=== PATIENT | male | born 2000 | race Two or more races ===

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

== ENCOUNTER 2019-08-25 15:22 | Emergency (ER) | payer MEDICAID, OTHER ==
[~2019-08-25] VITALS: Ht 182.9 cm; Wt 61.8 kg
[2019-08-25 15:34] VITALS: BP 104/66
--- NOTE | 2019-08-25 16:01 | NUR ---
PT TO ROOM 11 PER PEDIS. PT C/O LEFT EAR PAIN X5 DAYS, HURTS WORSE WHEN SWALLOWING. PT A/O X4, STRONG STEADY GAIT. REPORT TO JOEL WHITE
== END 2019-08-25 16:26 | disposition home or self-care (01) ==
LOC: ED 16:00
DX: H66.92 Otitis media, unspecified, left ear (principal); F17.210 Nicotine dependence, cigarettes, uncomplicated
CPT/HCPCS: 99283; 99406

== ENCOUNTER 2019-12-07 15:26 | Emergency (ER) | payer MEDICAID ==
[~2019-12-07] VITALS: Ht 182.9 cm; Wt 59.0 kg
[2019-12-07 15:35] VITALS: BP 132/79
[2019-12-07 16:14] LABS: BASOPHILS # (AUTO) 0.04 x10^3/uL (0-0.3); BASOPHILS % (AUTO) 1 % (0-1); EOSINOPHILS # (AUTO) 0.18 x10^3/uL (0-0.8); EOSINOPHILS % (AUTO) 3 % (1-7); LYMPHOCYTES # (AUTO) 1.18 x10^3/uL (1-6.1); LYMPHOCYTES % (AUTO) 18 % (22-44); MD NO; MEAN CORPUSCULAR HEMOGLOBIN 29.2 pg (27.5-34.5); MEAN CORPUSCULAR HGB CONC 32.9 g/dL (33.2-36.2); MEAN CORPUSCULAR VOLUME 88.8 fL (81-97); MEAN PLATELET VOLUME 9.1 fL (7.4-10.4); MONOCYTES # (AUTO) 0.47 x10^3/uL (0-1.4); MONOCYTES % (AUTO) 7 % (2-9); NEUTROPHILS # (AUTO) 4.81 x10^3/uL (1.8-8.0); NEUTROPHILS % (AUTO) 72 % (42-75); PLATELET COUNT 270 x10^3/uL (130-400); RED BLOOD COUNT 5.03 x10^6/uL (4.38-5.82); RED CELL DISTRIBUTION WIDTH 12.6 % (9.4-14.8)
[2019-12-07 16:27] LABS: ALBUMIN 4.1 g/dL (3.4-5.0); ANION GAP 5 mmol/L (5-15); CALCIUM 8.8 mg/dL (8.5-10.1); CHLORIDE 111 mmol/L (98-107); CREATININE 0.95 mg/dL (0.7-1.3)
== END 2019-12-07 17:31 | disposition home or self-care (01) ==
LOC: ED 17:00
DX: M79.662 Pain in left lower leg (principal); F17.210 Nicotine dependence, cigarettes, uncomplicated
CPT/HCPCS: 36415; 80048; 82040; 85025; 99283; 99406